=== PATIENT | male | born 1985 | race Caucasian/White ===

== ENCOUNTER 2020-05-06 02:58 | Emergency (ER) | payer OTHER, BC ==
[~2020-05-06] VITALS: Ht 182.9 cm; Wt 124.7 kg
[~2020-05-06 02:58] MED LIST: ACYC400 PO; Atarax10 MG GT; CITA20 PO; CYCL10 PO; DOC250 PO; Fluoxetine HCl20 M1 PO; HYDACE5 PO; IBUP600 PO; LORA.5 PO; LORA1 PO; NAPR500 PO; OTC COLD MED; OXYACE5T PO; OXYACE7.5T PO; RXCLIN PO; RXCYCL10 PO; RXOXYACE PO
[2020-05-06] MEDS ORDERED: CYCL10 PO (03:10)
== END 2020-05-06 03:47 | disposition home or self-care (01) ==
LOC: ER 02:58
DX: S29.012A Strain of muscle and tendon of back wall of thorax, initial encounter (principal); F32.9 Major depressive disorder, single episode, unspecified; Z79.899 Other long term (current) drug therapy; X50.1XXA Overexertion from prolonged static or awkward postures, initial encounter; Y92.89 Other specified places as the place of occurrence of the external cause; Y99.0 Civilian activity done for income or pay
CPT/HCPCS: 99283

== ENCOUNTER 2020-05-13 12:04 | Emergency (ER) | payer OTHER, BC ==
[~2020-05-13] VITALS: Ht 182.9 cm; Wt 124.7 kg
== END 2020-05-13 12:22 | disposition home or self-care (01) ==
LOC: ER 12:04
DX: Z02.79 Encounter for issue of other medical certificate (principal); F32.9 Major depressive disorder, single episode, unspecified; Z79.899 Other long term (current) drug therapy
CPT/HCPCS: 99281

== ENCOUNTER 2020-12-04 06:07 | Day surgery (SDC) | payer BC, OTHER ==
[~2020-12-04] VITALS: Ht 182.9 cm; Wt 134.3 kg
[2020-12-04] MEDS ORDERED: CLON.1 PO (06:30)
[2020-12-04] MEDS ORDERED: Hydroxyzine HCl50 MG (06:32)
--- NOTE | 2020-12-04 06:38 | NUR ---
Ambulatory in Day Surgery Surgical site prepped with 2% Chlorhexidine cloth wipe. History, Chart, Medications and Allergies reviewed before start of procedure.Lungs clear T/O to Auscultation. Patient confirms NPO status and agrees with scheduled surgery. Pre-Op teaching done. Pt verbalizes understanding. Patient States Post-Procedure ride home has been arranged. Patient reports completing Chlorhexadine shower X2 prior to admission to hospital.
--- NOTE | 2020-12-04 10:52 | NUR ---
Patient up to Ambulate independently. Gait steady. ABDOMMINAL BINDER PLACED. Discharged via wheelchair to private car for ride home WITH BROTHER. PATIENT REPORTS DOES NOT HAVE SUPPORT SYSTEM TO REVEIW DISCHARGE INSTRUCTIONS WITH. Discharge instructions reviewed with patient. Patient verbalizes understanding. Copy given to patient to take home.
== END 2020-12-04 23:03 | disposition home or self-care (01) ==
LOC: ORSCMMR 06:07 → ORD 07:30 → ORSCMMR 07:30
PROVIDERS: Surgery
PROC: 0WQF0ZZ Repair Abdominal Wall, Open Approach (ICD-10-PCS; principal; 2020-12-04 07:30)
DX: K42.9 Umbilical hernia without obstruction or gangrene (principal); K21.9 Gastro-esophageal reflux disease without esophagitis; E66.01 Morbid (severe) obesity due to excess calories; Z68.41 Body mass index [BMI] 40.0-44.9, adult; Z79.899 Other long term (current) drug therapy
CPT/HCPCS: A9270; J0690; J1100; J2250; J2405; J2704; J3010; J7120

== ENCOUNTER → 2021-04-10 | Outpatient (CLI) | payer BC, OTHER ==
[~2021-04-10] MED LIST changes: +CLON.1 PO; +Hydroxyzine HCl50 MG
== END | disposition home or self-care (01) ==
LOC: LAB SHORT 14:25 → LAB 14:25
DX: U07.1 COVID-19 (principal)
CPT/HCPCS: 85379

== ENCOUNTER 2022-12-12 08:07 | Day surgery (SDC) | payer OTHER ==
[~2022-12-12] VITALS: Ht 182.9 cm; Wt 140.6 kg
[2022-12-12] MEDS ORDERED: ALLO300 PO (08:44)
[2022-12-12] MEDS ORDERED: ALPR.5 PO (08:45)
[2022-12-12] MEDS ORDERED: FURO40 PO (08:46)
[2022-12-12] MEDS ORDERED: Vitamin D1000 UNI1 PO (08:46)
[2022-12-12] MEDS ORDERED: ATOR20 (08:46)
[2022-12-12] MEDS ORDERED: POTA10T PO (08:47)
[2022-12-12] MEDS ORDERED: METO100ER PO (08:47)
[2022-12-12] MEDS ORDERED: METF500 PO (08:48)
[2022-12-12] MEDS ORDERED: GABA100 PO (08:48)
--- NOTE | 2022-12-12 09:04 | NUR ---
Ambulatory in Day Surgery. History, Chart, Medications and Allergies reviewed before start of procedure. Lungs clear T/O to Auscultation. Patient confirms NPO status and agrees with scheduled surgery. Pre-Op teaching done. Pt verbalizes understanding. Patient States Post-Procedure ride home has been arranged.
[2022-12-12 09:11] VITALS: BP 134/90
--- NOTE | 2022-12-12 09:42 | NUR ---
12/12/22 [id number] Kaylee Ames History, Chart, Medications and Allergies reviewed before start of procedure. LIDOCAIN UPDRAFT GIVEN PRIOR TO START OF PROCEDURE
[2022-12-12 10:44] VITALS: BP 122/89
[2022-12-12 11:00] VITALS: BP 116/84
--- NOTE | 2022-12-12 11:09 | NUR ---
Patient up to Ambulate independently. Gait steady. Discharge instructions reviewed with patient. Patient verbalizes understanding. Copy given to patient to take home. Patient States Post-Procedure ride home has been arranged. Discharged via wheelchair to private car for ride home.
== END 2022-12-12 11:09 | disposition home or self-care (01) ==
LOC: ORSCMMR 08:07 → ORD 08:15 → ORSCMMR 09:30
PROVIDERS: Internal Medicine Gastroenterology
PROC: 0DB98ZX Excision of Duodenum, Via Natural or Artificial Opening Endoscopic, Diagnostic (ICD-10-PCS; principal; 2022-12-12 09:30)
PROC: 0DB68ZX Excision of Stomach, Via Natural or Artificial Opening Endoscopic, Diagnostic (ICD-10-PCS; principal; 2022-12-12 09:30)
PROC: 0DJD8ZZ Inspection of Lower Intestinal Tract, Via Natural or Artificial Opening Endoscopic (ICD-10-PCS; 2022-12-12 09:30)
PROC: 0DB68ZX Excision of Stomach, Via Natural or Artificial Opening Endoscopic, Diagnostic (ICD-10-PCS; 2022-12-12 09:30)
PROC: 0DB98ZX Excision of Duodenum, Via Natural or Artificial Opening Endoscopic, Diagnostic (ICD-10-PCS; 2022-12-12 09:30)
DX: R19.4 Change in bowel habit (principal); R10.13 Epigastric pain; K21.9 Gastro-esophageal reflux disease without esophagitis; K64.8 Other hemorrhoids; K62.5 Hemorrhage of anus and rectum; K29.70 Gastritis, unspecified, without bleeding; I10 Essential (primary) hypertension; J45.909 Unspecified asthma, uncomplicated; G47.33 Obstructive sleep apnea (adult) (pediatric); E11.9 Type 2 diabetes mellitus without complications; E66.01 Morbid (severe) obesity due to excess calories; Z68.41 Body mass index [BMI] 40.0-44.9, adult; Z79.899 Other long term (current) drug therapy
CPT/HCPCS: 82947; 88305; 88341; 88342; J2001; J2250; J2704; J7120

== ENCOUNTER 2023-08-14 04:28 | Emergency (ER) | payer OTHER ==
[~2023-08-14] VITALS: Ht 182.9 cm; Wt 142.9 kg
[~2023-08-14 04:28] MED LIST changes: +ALLO300 PO; +ALPR.5 PO; +ATOR20; +FURO40 PO; +GABA100 PO; +METF500 PO; +METO100ER PO; +POTA10T PO; +Vitamin D1000 UNI1 PO
[2023-08-14 04:34] VITALS: BP 127/98
[2023-08-14] MEDS ORDERED: Tetanus and Diphtheria Toxoid 0.5 ML INJ IM ONE (05:10)
== END 2023-08-14 05:19 | disposition home or self-care (01) ==
LOC: ER 04:28
DX: S01.01XA Laceration without foreign body of scalp, initial encounter (principal); W01.198A Fall on same level from slipping, tripping and stumbling with subsequent striking against other object, initial encounter; Z79.899 Other long term (current) drug therapy; Z79.84 Long term (current) use of oral hypoglycemic drugs
CPT/HCPCS: 12002; 90471; 90714; 99282-25